=== PATIENT | female | born 1935 | race American Indian/Alaskan Native ===

== ENCOUNTER 2019-03-31 05:21 | Emergency (ER) | payer SELFPAY ==
[~2019-03-31 05:21] MED LIST: ADRENALIN ONE
--- NOTE | 2019-03-31 05:36 | Emergency Department Report ---
HPI - General Time Seen by Provider: 03/31/19 05:31 - HPI HPI: Room 1 The patient is an 83-year-old female presenting with chief complaint cardiac arrest. Per EMS the patient was a witnessed arrest. EMS states they arrived on scene at 04:3625 the patient in asystole. ACLS protocols were initiated. EMS states they were unable to obtain a definitive airway so the patient was bagged. 3 rounds of epinephrine and 1 amp of sodium bicarbonate were administered prior to arrival. The patient arrived in the ED still in asystole. ACLS protocols were continued after intubation by myself without return of spontaneous circulation Location: Cardiovascular system Duration: [See above] Quality: Asystole Severity: Severe Modifying factors: [see above] Context: [see above] Mode of transportation: [not driving] ED Past Medical Hx - Past Medical History Hx Asthma: Yes - Surgical History Past Surgical History?: No - Family History Family history: no significant - Social History Smoking Status: Unknown if ever smoked Substance Use Type: None ED Review of Systems ROS: Stated complaint: CARDIAC ARREST Other details as noted in HPI Comment: Unobtainable due to pts medical conditions Physical Exam - Physical Exam Physical Exam: GENERAL: The patient is well-developed well-nourished elderly female lying on stretcher being bagged via BVM and receiving chest compressions. [] HEENT: Normocephalic. Atraumatic. Pupils unreactive bilaterally NECK: Trachea midline CHEST/LUNGS: No spontaneous respirations. Diminished breath sounds equal bilaterally after intubation with bagging HEART/CARDIOVASCULAR: No heart sounds. Asystole on the monitor ABDOMEN: Abdomen is soft, nontender. Patient has normal bowel sounds. There is no abdominal distention. SKIN: There is no diaphoresis. NEURO: GCS 3T MUSCULOSKELETAL:There is no evidence of acute injury. - Intubation Time Out Performed: No Sedative: none Laryngoscope: Jacob Size: 3 ET Tube Size: 8 Tube Secured Depth (cm): 24 Tube Secured Location: lips Tube Placement Confirmation: visualized tube passing t, equal breath sounds bilat, no breath sounds over epi Patient Tolerated Procedure: no complications Intubation Complications: none ED Medical Decision Making - Differential Diagnosis cardiac arrest Critical care attestation.: If time is entered above; I have spent that time in minutes in the direct care of this critically ill patient, excluding procedure time. ED Disposition Clinical Impression: Cardiac arrest Disposition: DC-20 Is pt being admited?: No Does the pt Need Aspirin: No Condition: Poor Time of Disposition: 05:31 (patient )
== END 2019-03-31 06:00 ==
LOC: ED 05:21
DX: I46.9 Cardiac arrest, cause unspecified (principal); J45.909 Unspecified asthma, uncomplicated
CPT/HCPCS: 31500; 99285; J0171; 82962